=== PATIENT | female | born 1985 | race Caucasian/White ===

== ENCOUNTER 2023-04-05 21:52 | Emergency (ER) | payer OTHER ==
[2023-04-05 22:30] LABS: Pregnancy Test - Urine (BHCG) Negative (Negative); Pregu Control Background? CLEAR/WHITE (CLR/WHITE); Pregu Control Bar Appear? YES (CONTROL BAR); Specific Gravity 1.006 (1.002-1.036)
[2023-04-05] MEDS ORDERED: Ketorolac Tromethamine 30 MG/ML VIAL ONE (22:43)
[2023-04-05] MEDS ORDERED: cefTRIAXone (ROCEPHIN) 500 MG VIAL ONE (22:43)
[2023-04-05] MEDS ORDERED: Sterile Water 10 ML ONE (22:43)
[2023-04-05 22:48] LABS: Bilirubin Negative (Negative); Blood, Urine Negative (Negative); Glucose, Urine (Dipstick) Negative (Negative); Ketone, Urine Negative (Negative); Leukocyte Moderate (Negative); Nitrite Negative (Negative); Protein, Urine (Dipstick) Negative (Neg-Trace); Urobilinogen 0.2 mg/dL (Less than 2)
[2023-04-05 22:54] LABS: Bacteria/HPF Rare-Few HPF (None Seen); CAUTI Indications for Culture Pelvic or flank pain; Clarity Hazy (Clear); RBC/HPF None Seen HPF (0-3); Specific Gravity, Urine 1.006 (1.002-1.036); Squamous Epithelial 0-3 HPF (0-3)
[2023-04-05 22:55] LABS: Yeast-Hyphae Rare HPF (None Seen)
[2023-04-05 22:56] LABS: Urine Culture Reflex Yes Yes
== END 2023-04-05 22:58 | disposition home or self-care (01) ==
LOC: MADERS 21:52
DX: N76.0 Acute vaginitis (principal); F17.290 Nicotine dependence, other tobacco product, uncomplicated
CPT/HCPCS: 81001; 81025; 87077; 87086; 96372; 99283; J0696; J1885